=== PATIENT | female | born 1985 ===

== ENCOUNTER 2025-02-04 03:21 | Emergency (ER) | payer OTHER ==
[~2025-02-04] VITALS: Ht 167.6 cm; Wt 78.0 kg
[2025-02-04 03:23] VITALS: TEMP 97.8
[2025-02-04 04:20] VITALS: BP 149/102; PULSE 94; RESP 16; O2SAT 94
== END 2025-02-04 05:56 | disposition home or self-care (01) ==
LOC: EMS 03:24
DX: F10.129 Alcohol abuse with intoxication, unspecified (principal); Z59.819 Housing instability, housed unspecified; Y90.9 Presence of alcohol in blood, level not specified
CPT/HCPCS: 99283; Z7502